=== PATIENT | female | born 1965 | race Caucasian/White ===

== ENCOUNTER 2023-09-15 15:10 | Emergency (ER) | payer SELFPAY ==
[2023-09-15 15:38] VITALS: BP 147/78; PULSE 82; RESP 16; TEMP 98.2; BMI 31.2
[2023-09-15] MEDS: SODIUM CHLORIDE 0.9% 500 ML INFUS.BAG IV ONE (16:44)
[2023-09-15 16:50] LABS: BASO % 0.7 % (0-2.0); EOS % 2.9 % (0-4.5); HEMATOCRIT 38.9 % (32.4-45.2); HEMOGLOBIN 13.5 GM/dL (10.7-15.3); LYMPH % 28.2 % (8-40); MCH 28.3 pg (25.7-33.7); MCHC 34.6 g/dl (32.0-36.0); MEAN CELL VOLUME 81.8 fl (80-96); MEAN PLT VOLUME 7.5 fl (7.5-11.1); MONO % 9.2 % (3.8-10.2); PLATELET COUNT 262 10^3/uL (134-434); RBC 4.76 M/mm3 (3.60-5.2); RDW 13.4 % (11.6-15.6); WHITE BLOOD COUNT 6.4 K/mm3 (4.0-10.0)
[2023-09-15 17:32] LABS: POTASSIUM 3.5 mmol/L (3.5-5.1)
[2023-09-15 17:34] LABS: ALBUMIN 3.6 g/dl (3.4-5.0); BLOOD UREA NITROGEN 7.4 mg/dL (7-18); CALCIUM 9.1 mg/dL (8.5-10.1)
[2023-09-15 17:37] LABS: CREATININE 0.6 mg/dL (0.55-1.3)
[2023-09-15 17:39] LABS: BILIRUBIN,TOTAL 0.4 mg/dL (0.2-1); TOT PROT 7.1 g/dl (6.4-8.2)
== END 2023-09-15 18:44 | disposition home or self-care (01) ==
LOC: JER 15:10
DX: U07.1 COVID-19 (principal); R19.7 Diarrhea, unspecified; R09.81 Nasal congestion; R50.9 Fever, unspecified
CPT/HCPCS: 0241U-QW; 36415; 80053; 83735; 85025; 99284-25